=== PATIENT | female | born 1970 | race Caucasian/White ===

== ENCOUNTER 2018-07-13 20:45 | Emergency (ER) | payer OTHER ==
[2018-07-13 20:57] VITALS: BP 104/50; PULSE 81; TEMP 98.2; BMI 36.8
--- NOTE | 2018-07-13 21:28 | PDOC ---
History of Present Illness - History of Present Illness Initial Comments: The patient is a 48 year old female, with a significant PMH of blood clot in her leg (6 months ago) and hypercholesterolemia, who presents to the emergency department today complaining of bruising along the proximal aspect of bilateral upper extremities for 2 days. Patient reports bruising bilaterally along the forearms and elbows, but is unsure of the causal factor. She notes she was playing volleyball 3 days ago, but does not believe the bruises are secondary to that. Patient also reports diffuse body fatigue for the past few weeks. She endorses having a sore throat 2 weeks ago, where she saw her PCP and was given acetaminophen. Her visit was otherwise normal at that time. Patient reports having a blood [place]. She does report vascular erythema/rash at that time which is different than symptoms at this time, but no residual effects of last years's illness. The patient denies chest pain, shortness of breath, headache and dizziness. Denies fever, chills, nausea, vomit, diarrhea and constipation. Denies dysuria, frequency, urgency and hematuria. Allergies: NKA Past surgical history: None reported Social history: None reported PCP: Dr. Thalia Mckeon 07/13/18 22:14 <Gertrude Gamez - Last Filed: 07/13/18 22:39> <Amy Cullen - Last Filed: 07/14/18 02:59> - General Chief Complaint: Pain Stated Complaint: BRUISING Time Seen by Provider: 07/13/18 21:27 Past History <Gertrude Gamez - Last Filed: 07/13/18 22:39> - Past Medical History COPD: No Hypercholesterolemia: Yes - Suicide/Smoking/Psychosocial Hx Smoking History: Unknown if ever smoked Have you smoked in the past 12 months: No Number of Cigarettes Smoked Daily: 0 Information on smoking cessation initiated: No Hx Alcohol Use: No Drug/Substance Use Hx: No <Amy Cullen - Last Filed: 07/14/18 02:59> - Past Medical History Allergies/Adverse Reactions: Allergies Allergy/AdvReac Type Severity Reaction Status Date / Time No Known Allergies Allergy Unverified 07/13/18 20:53 Home Medications: Ambulatory Orders NK [No Known Home Medication] 07/13/18 Review of Systems - Review of Systems Comments:: GENERAL/CONSTITUTIONAL: +Diffuse body fatigue. No fever or chills. HEAD, EYES, EARS, NOSE AND THROAT: No change in vision. No ear pain or discharge. No sore throat. CARDIOVASCULAR: No chest pain or shortness of breath. RESPIRATORY: No cough, wheezing, or hemoptysis. GASTROINTESTINAL: No nausea, vomiting, diarrhea or constipation. GENITOURINARY: No dysuria, frequency, or change in urination. MUSCULOSKELETAL: +Bruising along the lower end of bilateral upper extremities. No joint or muscle swelling or pain. No neck or back pain. SKIN: +Bruising along the lower end of bilateral upper extremities. NEUROLOGIC: No headache, vertigo, loss of consciousness, or change in strength/ sensation. ENDOCRINE: No increased thirst. No abnormal weight change. HEMATOLOGIC/LYMPHATIC: No anemia, easy bleeding, or history of blood clots. ALLERGIC/IMMUNOLOGIC: No hives or skin allergy. 07/13/18 22:15 <Gertrude Gamez - Last Filed: 07/13/18 22:39> *Physical Exam - Vital Signs Last Vital Signs Temp Pulse Resp BP Pulse Ox 98.2 F 81 14 104/50 L 99 07/13/18 20:49 07/13/18 20:49 07/13/18 20:49 07/13/18 20:49 07/13/18 20:49 - Physical Exam Comments: GENERAL: Awake, alert, and fully oriented, in no acute distress HEAD: No signs of trauma EYES: PERRLA, EOMI, sclera anicteric, conjunctiva clear ENT: Auricles normal inspection, hearing grossly normal, nares patent, oropharynx clear without exudates. Moist mucosa NECK: Normal ROM, supple, no lymphadenopathy, JVD, or masses LUNGS: Breath sounds equal, clear to auscultation bilaterally. No wheezes, and no crackles HEART: Regular rate and rhythm, normal S1 and S2, no murmurs, rubs or gallops ABDOMEN: Soft, nontender, normoactive bowel sounds. No guarding, no rebound. No masses EXTREMITIES: +Non-tender, non-edematous scattered ecchymoses along the volar aspect of bilateral upper forearms. +Right proximal non-tender, slightly edematous 3cm X 2cm ecchymosis. +Left proximal non-tender, slightly edematous 3cm X 3cm ecchymosis. Normal range of motion, no edema. No clubbing or cyanosis. No cords, erythema, or tenderness. NEUROLOGICAL: Cranial nerves II through XII grossly intact. Normal speech, normal gait SKIN: +Non-tender, non-edematous scattered ecchymoses along the volar aspect of bilateral upper forearms. +Right proximal non-tender, slightly edematous 3cm X 2cm ecchymosis. +Left proximal non-tender, slightly edematous 3cm X 3cm ecchymosis. Warm, Dry, normal turgor, no rashes or lesions noted. 07/13/18 22:15 <Gertrude Gamez - Last Filed: 07/13/18 22:39> - Vital Signs Last Vital Signs Temp Pulse Resp BP Pulse Ox 98.2 F 81 14 104/50 L 99 07/13/18 20:49 07/13/18 20:49 07/13/18 20:49 07/13/18 20:49 07/13/18 20:49 <Amy Cullen - Last Filed: 07/14/18 02:59> ED Treatment Course - LABORATORY CBC & Chemistry Diagram: 07/13/18 22:20 07/13/18 22:20 <Gertrude Gamez - Last Filed: 07/13/18 22:39> - LABORATORY CBC & Chemistry Diagram: 07/13/18 22:20 07/13/18 22:20 <Amy Cullen - Last Filed: 07/14/18 02:59> Medical Decision Making - Medical Decision Making Documentation has been prepared under my direction and personally reviewed by me in its entirety. I attest that this documented accurately reflects all work, treatment, procedures and medical decision making performed by me. As noted above, this 48-year-old woman with apparent history of DVT about 6 months ago, diagnosed when she was [place], but no other significant past medical history presents with ecchymotic areas of her forearms (volar and dorsal aspects of forearms). Patient denies trauma, however areas were noted the day after she played volleyball. No other areas of bruising or other rash noted by the patient. No associated symptoms. She denies previous anemia/easy bruising/prolonged bleeding from wounds. Exam as noted. Exam showed no other petechiae/ecchymosis or other direct evidence of coagulation abnormality . However, because of patient's previous thromboembolic history, CBC/INR/chemistry profile were sent to evaluate for evidence of thrombocytopenia/clotting factor abnormality/renal dysfunction/ hepatic dysfunction. Laboratory evaluation essentially normal. Results discussed with the patient and her daughter. At this point in time, ecchymosis or to be secondary to trauma. Patient should follow-up with her PMD, Dr. Mckeon within the next 5 days. If she has any prolonged bleeding or more extensive rash, she should follow- up with Dr. Mckeon sooner or return to the ER. <Amy Cullen - Last Filed: 07/14/18 02:59> *DC/Admit/Observation/Transfer - Attestations Scribe Attestion: Documentation prepared by HANNA Wood, acting as medical advisor for Amy Cullen MD. 07/13/18 22:15 <Gertrude Gamez - Last Filed: 07/13/18 22:39> <Amy Cullen - Last Filed: 07/14/18 02:59> Diagnosis at time of Disposition: Traumatic ecchymosis of forearm Qualifiers: Encounter type: initial encounter Laterality: unspecified laterality Qualified Code(s): S50.10XA - Contusion of unspecified forearm, initial encounter - Discharge Dispostion Disposition: HOME Condition at time of disposition: Stable - Referrals Referrals: Thalia Mckeon MD [Primary Care Provider] - - Patient Instructions Printed Discharge Instructions: Easy Bruising (Alternative Therapy) Additional Instructions: avoid strenuous activity involving upper body for the next week drink plenty of water return or see Dr Mckeon if you have more bruising or have bleeding from nose/mouth - Post Discharge Activity
[2018-07-13 22:42] LABS: BASO % 1.1 % (0-2.0); EOS % 1.6 % (0-4.5); HEMATOCRIT 43.2 % (32.4-45.2); HEMOGLOBIN 14.4 GM/dl (10.7-15.3); INR 1.01 (0.82-1.09); MCH 31.6 pg (25.7-33.7); MCHC 33.4 g/dl (32.0-36.0); MEAN CELL VOLUME 94.6 fl (80-96); MEAN PLT VOLUME 7.9 fl (7.5-11.1); MONO % 8.3 % (3.8-10.2); PLATELET COUNT 351 K/MM3 (134-434); PROTHROMBIN TIME (PATIENT) 11.3 SEC (10.2-13.0); RBC 4.57 M/mm3 (3.60-5.2); RDW 11.6 % (11.6-15.6); WHITE BLOOD COUNT 6.8 K/mm3 (4.0-10.8)
[2018-07-13 22:47] LABS: ALBUMIN 3.9 g/dl (3.4-5.0); ALK PHOS 83 U/L (45-117); ANION GAP 7 MMOL/L (8-16); BILIRUBIN,TOTAL 0.6 mg/dl (0.2-1); BLOOD UREA NITROGEN 21 mg/dl (7-18); CALCIUM 9.2 mg/dl (8.5-10); CHLORIDE 101 mmol/L (98-107); CO2 28 mmol/L (21-32); CREATININE 0.7 mg/dl (0.55-1.3); GLUCOSE,RANDOM 101 mg/dl (74-106); POTASSIUM 4.1 mmol/L (3.5-5.1); SGOT/AST 25 U/L (15-37); SGPT/ALT 21 U/L (13-61); SODIUM 136 mmol/L (136-145); TOT PROT 7.1 g/dl (6.4-8.2)
== END 2018-07-13 23:30 | disposition home or self-care (01) ==
LOC: FER 20:45
DX: S50.11XA Contusion of right forearm, initial encounter (principal); S50.12XA Contusion of left forearm, initial encounter; E78.00 Pure hypercholesterolemia, unspecified; I82.409 Acute embolism and thrombosis of unspecified deep veins of unspecified lower extremity
CPT/HCPCS: 36415; 80053; 85025; 85610; 99282-25

== ENCOUNTER 2019-06-07 08:59 | Day surgery (SDC) | payer OTHER ==
[2019-06-01 14:13] VITALS: BMI 34.4
[2019-06-07] MEDS ORDERED: PROPOFOL 20 ML ONE ×2 (09:51)
[2019-06-07] MEDS ORDERED: LIDOCAINE HCL/PF 2% SDV 5ML VIAL ONE (09:51)
[2019-06-07 10:50] VITALS: TEMP 97.8
[2019-06-07 11:31] VITALS: BP 110/64; PULSE 74
== END 2019-06-07 11:30 | disposition home or self-care (01) ==
LOC: FASU-ENDO 08:59
PROVIDERS: ATTEND Internal Medicine Gastroenterology
PROC: 0DJD8ZZ Inspection of Lower Intestinal Tract, Via Natural or Artificial Opening Endoscopic (ICD-10-PCS; principal; 2019-06-07 10:30)
DX: Z12.11 Encounter for screening for malignant neoplasm of colon (principal); K64.1 Second degree hemorrhoids
CPT/HCPCS: 84703

== ENCOUNTER 2021-07-01 13:59 | Emergency (ER) | payer OTHER ==
[2021-07-01 14:12] VITALS: BP 187/73; PULSE 87; TEMP 97.2; BMI 38.5
[2021-07-01] MEDS ORDERED: ACETAMINOPHEN 500 MG TABLET (FP) PO ONE (15:45)
[2021-07-01] MEDS ORDERED: ACETAMINOPHEN 325 MG TABLET (FP) ONE (16:13)
[2021-07-01 16:41] LABS: BASO % 0.5 % (0-2.0); EOS % 0.9 % (0-4.5); HEMOGLOBIN 14.2 GM/dL (10.7-15.3); LYMPH % 48.9 % (8-40); MCH 30.8 pg (25.7-33.7); MCHC 33.8 g/dl (32.0-36.0); MEAN CELL VOLUME 91.3 fl (80-96); MONO % 8.4 % (3.8-10.2); NEUT % 41.3 % (42.8-82.8); PLATELET COUNT 387 10^3/uL (134-434); RDW 12.3 % (11.6-15.6); WHITE BLOOD COUNT 5.3 K/mm3 (4.0-10.0)
[2021-07-01] MEDS ORDERED: amLODIPine BESYLATE 10 MG TABLET (FP) PO ONE (17:05)
[2021-07-01 17:07] LABS: BLOOD UREA NITROGEN 10.5 mg/dL (7-18); CALCIUM 9.4 mg/dL (8.5-10.1); MAGNESIUM 2.3 mg/dL (1.8-2.4)
[2021-07-01 17:08] LABS: ALBUMIN 3.8 g/dl (3.4-5.0)
[2021-07-01 17:11] LABS: CREATININE 0.7 mg/dL (0.55-1.3)
[2021-07-01 17:12] LABS: BILIRUBIN,TOTAL 0.6 mg/dL (0.2-1); TOT PROT 7.7 g/dl (6.4-8.2)
[2021-07-01] MEDS ORDERED: amLODIPine BESYLATE 10 MG TABLET (FP) ONE (17:38)
== END 2021-07-01 20:12 | disposition left against medical advice (07) ==
LOC: JER 13:59
DX: S49.91XA Unspecified injury of right shoulder and upper arm, initial encounter (principal); R55 Syncope and collapse; W01.0XXA Fall on same level from slipping, tripping and stumbling without subsequent striking against object, initial encounter
CPT/HCPCS: 36415; 70450-TC; 71045-TC-FY; 72125-TC; 73030-TC-RT-FY; 80053; 83735; 84484; 85025; 93005; 93010; 99285-25

== ENCOUNTER 2023-03-09 11:45 | Emergency (ER) | payer SELFPAY ==
[2023-03-09 12:06] VITALS: BP 154/90; PULSE 80; RESP 18; TEMP 98.3; BMI 40.2
[2023-03-09] MEDS ORDERED: ACETAMINOPHEN 500 MG TABLET (FP) PO ONE (13:55)
[2023-03-09] MEDS ORDERED: ACETAMINOPHEN 325 MG TABLET (FP) ONE (14:00)
[2023-03-09 15:23] LABS: EOS % 0.7 % (0-4.5); HEMATOCRIT 44.6 % (32.4-45.2); HEMOGLOBIN 14.7 GM/dL (10.7-15.3); LYMPH % 52.9 % (8-40); MCH 30.7 pg (25.7-33.7); MEAN CELL VOLUME 93.1 fl (80-96); MEAN PLT VOLUME 7.8 fl (7.5-11.1); MONO % 7.2 % (3.8-10.2); NEUT % 38.2 % (42.8-82.8); PLATELET COUNT 382 10^3/uL (134-434); RBC 4.79 M/mm3 (3.60-5.2); RDW 12.8 % (11.6-15.6); WHITE BLOOD COUNT 5.6 K/mm3 (4.0-10.0)
[2023-03-09 15:29] LABS: INR 1.05 (0.83-1.09); PROTHROMBIN TIME (PATIENT) 12.2 SEC (9.7-13.0)
[2023-03-09 15:31] LABS: POTASSIUM 3.8 mmol/L (3.5-5.1)
[2023-03-09 15:32] LABS: ACTIVATED PTT 28.4 SECONDS (25.2-36.5)
[2023-03-09 15:34] LABS: CALCIUM 9.1 mg/dL (8.5-10.1)
[2023-03-09 15:35] LABS: ALBUMIN 3.8 g/dl (3.4-5.0); BLOOD UREA NITROGEN 9.9 mg/dL (7-18)
[2023-03-09 15:38] LABS: CREATININE 0.6 mg/dL (0.55-1.3)
[2023-03-09 15:40] LABS: BILIRUBIN,TOTAL 0.4 mg/dL (0.2-1); TOT PROT 7.6 g/dl (6.4-8.2)
[2023-03-09] MEDS ORDERED: ACETAMINOPHEN INJECTION 100 ML IVPB ONE (17:08)
[2023-03-09] MEDS ORDERED: methylPREDNISolone NA SUCC 125 MG/2 ML VIAL ONE (17:08)
[2023-03-09] MEDS ORDERED: IBUPROFEN 600 MG TABLET (FP) PO ONE ×2 (17:08→17:13)
== END 2023-03-09 17:30 | disposition home or self-care (01) ==
LOC: JER 11:45
DX: M71.20 Synovial cyst of popliteal space [Baker], unspecified knee (principal); R60.0 Localized edema; M25.462 Effusion, left knee; M79.661 Pain in right lower leg; M79.662 Pain in left lower leg
CPT/HCPCS: 36415; 71046-TC-FY; 80053; 83880; 85025; 85610; 85730; 93005; 93010; 93970-TC; 99285-25